=== PATIENT | male | born 1990 | race Caucasian/White ===

== ENCOUNTER 2025-08-08 08:43 | Outpatient (CLI) | payer OTHER ==
--- NOTE | 2025-08-08 10:03 | RADIOLOGY REPORT ---
EXAM: MR MRI C SPINE CLINICAL HISTORY: CERVICALGIA COMPARISON: None Technique: MRI of the cervical spine was performed without contrast. Findings: Vertebral body height is preserved. Vertebral body alignment is within normal limits. Vertebral marrow signal is essentially normal. No spinal cord edema. C2-3: No significant spinal canal or foraminal stenosis. C3-4: No significant spinal canal or foraminal stenosis. C4-5: No significant spinal canal or foraminal stenosis. C5-6: Small central disc protrusion. No significant spinal canal or foraminal stenosis. C6-7: Small disc bulge. No significant spinal canal or foraminal stenosis. C7-T1: No significant spinal canal or foraminal stenosis. The paraspinal tissues are unremarkable. IMPRESSION: No acute fracture. Mild degenerative changes of the cervical spine. No significant spinal canal or foraminal stenosis.
--- NOTE | 2025-08-08 10:07 | RADIOLOGY REPORT ---
CLINICAL HISTORY: Cervicalgia. Neck and shoulder pain. TECHNIQUE: Multi sequence multi planar MRI images of the thoracic spine were obtained without IV contrast. COMPARISON: None FINDINGS: The T12 vertebra is not included within the [id number] of the exam. Vertebral body alignment is within normal limits. Vertebral body heights are maintained. Posterior elements are intact. No evidence of acute fracture. No focal suspicious marrow signal abnormality. Multilevel disc desiccation with areas of mild to moderate disc space narrowing. No significant disc bulge or spinal canal stenosis. No significant neural foraminal stenosis in the thoracic spine. Spinal cord is normal in signal intensity and morphology. Paraspinal soft tissues are unremarkable. 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
== END 2025-08-08 23:59 | disposition home or self-care (01) ==
LOC: MRI 08:43
PROVIDERS: ATTEND Nurse Practitioner
DX: M47.812 Spondylosis without myelopathy or radiculopathy, cervical region (principal); M50.33 Other cervical disc degeneration, cervicothoracic region; M48.04 Spinal stenosis, thoracic region
CPT/HCPCS: 72141; 72146